=== PATIENT | female | born 2000 ===

== ENCOUNTER 2024-07-19 16:58 | Outpatient (RCR) | payer BC, SELFPAY | END 2024-07-19 23:59 | disposition home or self-care (01) | LOC: RPT 16:58 | PROVIDERS: ATTENDING PHYSICIAN Obstetrics & Gynecology Gynecology; FAMILY PHYSICIAN Nurse Practitioner Adult Health | DX: F52.5 Vaginismus not due to a substance or known physiological condition (principal); Z73.6 Limitation of activities due to disability | CPT/HCPCS: 97110; 97112; 97140; 97162; 97530 ==

== ENCOUNTER 2024-08-16 16:58 | Outpatient (RCR) | payer BC, SELFPAY | END 2024-08-16 23:59 | disposition home or self-care (01) | LOC: RPT 16:58 | PROVIDERS: ATTENDING PHYSICIAN Obstetrics & Gynecology Gynecology; FAMILY PHYSICIAN Nurse Practitioner Adult Health | DX: F52.5 Vaginismus not due to a substance or known physiological condition (principal); Z73.6 Limitation of activities due to disability | CPT/HCPCS: 97112; 97140; 97530 ==

== ENCOUNTER 2024-09-13 17:18 | Outpatient (RCR) | payer BC, SELFPAY | END 2024-09-13 23:59 | disposition home or self-care (01) | LOC: RPT 17:18 | PROVIDERS: ATTENDING PHYSICIAN Obstetrics & Gynecology Gynecology; FAMILY PHYSICIAN Nurse Practitioner Adult Health | DX: F52.5 Vaginismus not due to a substance or known physiological condition (principal); Z73.6 Limitation of activities due to disability | CPT/HCPCS: 97110; 97140; 97530 ==

== ENCOUNTER 2024-10-11 17:58 | Outpatient (RCR) | payer BC, SELFPAY | END 2024-10-11 23:59 | disposition home or self-care (01) | LOC: RPT 17:58 | PROVIDERS: ATTENDING PHYSICIAN Obstetrics & Gynecology Gynecology; FAMILY PHYSICIAN Nurse Practitioner Adult Health | DX: F52.5 Vaginismus not due to a substance or known physiological condition (principal); Z73.6 Limitation of activities due to disability | CPT/HCPCS: 97014; 97110; 97112; 97530 ==

== ENCOUNTER 2024-11-13 15:10 | Outpatient (RCR) | payer BC, SELFPAY | END 2024-11-13 23:59 | disposition home or self-care (01) | LOC: RPT 15:10 | PROVIDERS: ATTENDING PHYSICIAN Obstetrics & Gynecology Gynecology; FAMILY PHYSICIAN Nurse Practitioner Adult Health | DX: F52.5 Vaginismus not due to a substance or known physiological condition (principal); Z73.6 Limitation of activities due to disability | CPT/HCPCS: 97110; 97112; 97530 ==

== ENCOUNTER 2024-11-29 17:12 | Outpatient (RCR) | payer BC, SELFPAY | END 2024-11-29 23:59 | disposition home or self-care (01) | LOC: RPT 17:12 | PROVIDERS: ATTENDING PHYSICIAN Obstetrics & Gynecology Gynecology; FAMILY PHYSICIAN Nurse Practitioner Adult Health | DX: F52.5 Vaginismus not due to a substance or known physiological condition (principal); Z73.6 Limitation of activities due to disability | CPT/HCPCS: 97112; 97140; 97530 ==